=== PATIENT | male | born 1955 ===

== ENCOUNTER 2023-06-09 06:49 | Day surgery (SDC) | payer OTHER ==
[~2023-06-09] VITALS: Ht 175.3 cm; Wt 73.4 kg
[2023-06-09 08:42] VITALS: BP 124/84
== END 2023-06-09 08:55 | disposition home or self-care (01) ==
LOC: ORSCSDS 06:49
PROVIDERS: Specialist
PROC: 0DBM8ZX Excision of Descending Colon, Via Natural or Artificial Opening Endoscopic, Diagnostic (ICD-10-PCS; principal; 2023-06-09 08:00)
DX: Z12.11 Encounter for screening for malignant neoplasm of colon (principal); D12.4 Benign neoplasm of descending colon; Z83.719 Family history of colon polyps, unspecified; K64.8 Other hemorrhoids
CPT/HCPCS: 88305; J2704; J7120